=== PATIENT | male | born 1985 | race African-American/Black ===

== ENCOUNTER 2024-10-07 20:02 | Emergency (ER) | payer OTHER ==
[2024-10-07 20:08] VITALS: BP 133/70; PULSE 68; RESP 18; TEMP 97.9; BMI 28.7
[2024-10-07] MEDS ORDERED: ACETAMINOPHEN 325 MG TABLET (FP) ONE (21:18)
[2024-10-07] MEDS: ACETAMINOPHEN 500 MG TABLET (FP) PO ONE (21:20)
== END 2024-10-07 22:10 | disposition home or self-care (01) ==
LOC: JERFT 20:02
DX: S13.4XXA Sprain of ligaments of cervical spine, initial encounter (principal); M54.50 Low back pain, unspecified; M25.551 Pain in right hip; M25.552 Pain in left hip; M25.511 Pain in right shoulder; M25.512 Pain in left shoulder; F41.9 Anxiety disorder, unspecified; V49.49XA Driver injured in collision with other motor vehicles in traffic accident, initial encounter; Y92.410 Unspecified street and highway as the place of occurrence of the external cause
CPT/HCPCS: 70360-TC-FY; 71045-TC-FY; 99284-25